=== PATIENT | female | born 1940 | race Caucasian/White ===

== ENCOUNTER 2019-03-29 22:10 | Inpatient (IN) ==
[2019-03-29] MEDS ORDERED: NITROGLYCERIN 2% OINT 1 INCH/GM PACK TOP ONE (22:23)
[2019-03-29] MEDS ORDERED: ONDANSETRON 4 MG/2 ML VIAL ONE (22:23)
[2019-03-29] MEDS ORDERED: NITROGLYCERIN 2% OINT 1 INCH/GM PACK TOP STA (22:25)
[2019-03-29] MEDS ORDERED: ALBUTEROL/IPRATROPIUM 3 ML NEB RESP TX STA (22:25)
[2019-03-29] MEDS ORDERED: ONDANSETRON 4 MG/2 ML VIAL IV STA (22:25)
[2019-03-29 22:38] LABS: Basophils # 0.1 10*3/uL (0.0-0.2); Basophils % 0.7 % (0.0-0.8); Eosinophils # 0.2 10*3/uL (0.0-0.87); Hematocrit 30.4 VOL% (35.7-47.0); Hemoglobin 9.6 GM/DL (12.0-16.0); Immature Granulocytes Absolute 0.24 #; Lymphocytes # 0.9 10*3/uL (1.4-4.0); Lymphocytes % 7.5 % (21.3-54.2); Mean Corpuscular HGB Conc 31.6 GM/DL (32-36); Mean Corpuscular Volume 105.6 FL (87-102); Mean Platelet Volume 9.3 FL (9.6-12.0); Monocytes % 4.5 % (1.7-12.7); Neutrophils % 83.3 % (38.7-73.9); Platelet Count 122 T/CUMM (130-400); Red Blood Count 2.88 MC/CUMM (3.8-5.5); Red Cell Distribution Width 20.1 % (9.3-17.3); White Blood Count 11.8 T/CUMM (4-12)
[2019-03-29 22:51] LABS: ABG Base Excess -2.7 MMOL/L (-2.5-2.5); ABG HCO3 22.2 MMOL/L (20-26); ABG PCO2 49.7 MM HG (35-48); ABG PH 7.294 (7.35-7.45); ABG TCO2 22.3 MMOL/L (23-27); Allen Test Positive; Pt O2 Delivery Device BIPAP
[2019-03-29 23:11] LABS: Albumin 3.9 G/DL (3.4-5.0); Bilirubin,Total 0.5 MG/DL (0.2-1.0); Calcium 7.6 MG/DL (8.5-10.1); Osmolality,Calculated 289.7 MOS/KG (273-304)
[2019-03-29 23:17] LABS: PT Patient Result 11.3 SECS (9.6-12.2)
[2019-03-30 00:11] LABS: Allen Test Positive; Pt O2 Delivery Device BIPAP
[2019-03-30 00:13] LABS: ABG Base Excess -0.7 MMOL/L (-2.5-2.5); ABG HCO3 24.9 MMOL/L (20-26); ABG Oxygen Saturation 98.9 % (95-100); ABG PCO2 45.6 MM HG (35-48); ABG PH 7.355 (7.35-7.45); ABG PO2 291.9 MM HG (80-95); ABG TCO2 26.3 MMOL/L (23-27)
[2019-03-30] MEDS ORDERED: BUDESONIDE/FORMOTEROL 80-4.5 INHALER 6.9 GM INH PRN (02:44)
[2019-03-30] MEDS ORDERED: hydrALAZINE 20 MG/1 ML VIAL IV PRN (02:44)
[2019-03-30] MEDS ORDERED: ALBUTEROL/IPRATROPIUM 3 ML NEB RESP TX PRN (02:44)
[2019-03-30] MEDS ORDERED: FUROSEMIDE 40 MG/4 ML VIAL IV ONE (02:44)
[2019-03-30 03:46] LABS: Basophils % 0.5 % (0.0-0.8); Eosinophils # 0.1 10*3/uL (0.0-0.87); Eosinophils % 1.8 % (0.00-10.9); Hematocrit 27.1 VOL% (35.7-47.0); Hemoglobin 8.3 GM/DL (12.0-16.0); Immature Granulocytes % 1.2 %; Immature Granulocytes Absolute 0.09 #; Lymphocytes # 0.5 10*3/uL (1.4-4.0); Lymphocytes % 6.7 % (21.3-54.2); Mean Corpuscular HGB Conc 30.6 GM/DL (32-36); Mean Platelet Volume 9.3 FL (9.6-12.0); Monocytes % 6.3 % (1.7-12.7); NRBC # 0.02 10*3/uL; Neutrophils % 83.5 % (38.7-73.9); Platelet Count 101 T/CUMM (130-400); Red Blood Count 2.58 MC/CUMM (3.8-5.5); Red Cell Distribution Width 20.2 % (9.3-17.3); White Blood Count 7.7 T/CUMM (4-12)
[2019-03-30 04:29] LABS: Troponin I 0.068 NG/ML (0.00-0.045)
[2019-03-30 04:34] LABS: Risk Ratio 2.87; Thyroid Stimulating Hormone 2.34 uIU/ml (0.358-3.74); VLDL CHOLESTEROL 27.2 MG/DL
[2019-03-30 04:35] LABS: Folate > 24.0 NG/ML (5.4-24.0); Vitamin B12 935 PG/ML (211-911)
[2019-03-30] MEDS ORDERED: HEPARIN 5,000 UNIT/1 ML VIAL SUBCUT SCH (06:00)
[2019-03-30] MEDS: LEVOTHYROXINE 50 MCG TABLET PO SCH (06:37)
[2019-03-30] MEDS ORDERED: carvediloL 6.25 MG TABLET PO SCH (08:00)
[2019-03-30] MEDS: THEOPHYLLINE ER 300 MG TABLET PO SCH ×2 (09:00→18:45)
[2019-03-30] MEDS: SEVELAMER CARBONATE 800 MG TABLET PO SCH ×3 (09:03→18:46)
[2019-03-30] MEDS: MONTELUKAST 10 MG TABLET PO SCH (09:04)
[2019-03-30] MEDS: hydrALAZINE 10 MG TABLET PO SCH ×2 (09:05→21:57)
[2019-03-30] MEDS: CLOPIDOGREL 75 MG TABLET PO SCH (09:05)
[2019-03-30] MEDS: ISOSORBIDE MONONITRATE 30 MG TABLET PO SCH (09:05)
[2019-03-30 09:44] LABS: Troponin I 0.068 NG/ML (0.00-0.045)
[2019-03-30] MEDS ORDERED: LIDOCAINE/PRILOCAINE CREAM 5 GM TUBE TOP ONE (10:56)
[2019-03-30] MEDS ORDERED: POTASSIUM CHLORIDE RIDER 10 MEQ in PREMIX 1 EACH IV PRN (11:11)
[2019-03-30] MEDS ORDERED: MAGNESIUM SULF RIDER 2 GM in PREMIX 1 EACH IV PRN (11:11)
[2019-03-30] MEDS: NEBIVOLOL 5 MG TABLET PO SCH ×2 (11:50→21:57)
[2019-03-30 12:54] LABS: Hepatitis B Core IgM Quant 0.08 Index; Hepatitis B Surface Ag Quant < 0.10 Index; Hepatitis B Surface Ag Result Negative (Negative); Hepatitis C Virus Ab Quant 0.04 Index; Hepatitis C Virus Ab Result Negative (Negative)
[2019-03-30 15:31] LABS: Troponin I 0.059 NG/ML (0.00-0.045)
[2019-03-30] MEDS ORDERED: PITAVASTATIN 2 MG TABLET PO SCH (21:00)
[2019-03-30] MEDS ORDERED: SIMVASTATIN 40 MG TABLET PO SCH (21:00)
[2019-03-30] MEDS: RANOLAZINE 500 MG TABLET PO SCH (21:56)
[2019-03-30] MEDS: PYRIDOXINE 100 MG TABLET PO SCH (21:56)
[2019-03-30] MEDS: MULTIVITAMIN (BEROCCA) TABLET PO SCH (21:57)
[2019-03-31 05:46] LABS: Basophils % 0.4 % (0.0-0.8); Eosinophils # 0.2 10*3/uL (0.0-0.87); Eosinophils % 2.4 % (0.00-10.9); Hematocrit 27.5 VOL% (35.7-47.0); Hemoglobin 8.6 GM/DL (12.0-16.0); Immature Granulocytes % 0.6 %; Immature Granulocytes Absolute 0.05 #; Lymphocytes # 0.6 10*3/uL (1.4-4.0); Lymphocytes % 8.2 % (21.3-54.2); Mean Corpuscular HGB Conc 31.3 GM/DL (32-36); Mean Corpuscular Volume 104.2 FL (87-102); Mean Platelet Volume 9.8 FL (9.6-12.0); Monocytes % 6.6 % (1.7-12.7); Neutrophils % 81.8 % (38.7-73.9); Platelet Count 103 T/CUMM (130-400); Red Blood Count 2.64 MC/CUMM (3.8-5.5); Red Cell Distribution Width 19.8 % (9.3-17.3); White Blood Count 7.8 T/CUMM (4-12)
[2019-03-31] MEDS ORDERED: DIAZEPAM 5 MG TABLET PO ONE (06:00)
[2019-03-31 06:07] LABS: Anisocytosis 1+; Macrocytosis 1+; Ovalocytes Slight
[2019-03-31 06:08] LABS: Platelet Estimate Decreased
[2019-03-31 06:20] LABS: Calcium 7.8 MG/DL (8.5-10.1); Osmolality,Calculated 273.2 MOS/KG (273-304)
[2019-03-31] MEDS: LEVOTHYROXINE 50 MCG TABLET PO SCH (06:36)
[2019-03-31] MEDS: SEVELAMER CARBONATE 800 MG TABLET PO SCH ×3 (09:18→17:59)
[2019-03-31] MEDS: THEOPHYLLINE ER 300 MG TABLET PO SCH ×2 (09:20→19:27)
[2019-03-31] MEDS: ISOSORBIDE MONONITRATE 30 MG TABLET PO SCH (09:21)
[2019-03-31] MEDS: RANOLAZINE 500 MG TABLET PO SCH ×2 (09:21→20:23)
[2019-03-31] MEDS: MONTELUKAST 10 MG TABLET PO SCH (09:21)
[2019-03-31] MEDS: hydrALAZINE 10 MG TABLET PO SCH ×2 (09:21→20:23)
[2019-03-31] MEDS: NEBIVOLOL 5 MG TABLET PO SCH ×2 (09:22→20:23)
[2019-03-31] MEDS: CLOPIDOGREL 75 MG TABLET PO SCH (09:22)
[2019-03-31] MEDS ORDERED: LIDOCAINE 1% 20 ML VIAL ONE (12:49)
[2019-03-31] MEDS ORDERED: NITROGLYCERIN DRIP 50 MG/250 ML BOTTLE IV ONE (12:49)
[2019-03-31] MEDS ORDERED: VERAPAMIL 5 MG/2 ML VIAL ONE (12:50)
[2019-03-31] MEDS ORDERED: DIAZEPAM 5 MG TABLET ONE (12:53)
[2019-03-31] MEDS ORDERED: HYDROmorphone 2 MG/1 ML VIAL ONE (13:13)
[2019-03-31] MEDS ORDERED: MIDAZOLAM 2 MG/2 ML VIAL ONE ×2 (13:13→15:36)
[2019-03-31] MEDS ORDERED: HEPARIN 5,000 UNIT/1 ML VIAL ONE ×2 (13:37→16:42)
[2019-03-31] MEDS ORDERED: diphenhydrAMINE 50 MG/1 ML VIAL ONE (15:37)
[2019-03-31] MEDS ORDERED: NITROPRUSSIDE 50 MG/2 ML VIAL ONE (16:53)
[2019-03-31] MEDS ORDERED: ONDANSETRON 4 MG/2 ML VIAL ONE ×2 (16:57→17:56)
[2019-03-31] MEDS ORDERED: NITROGLYCERIN SL 0.4 MG TABLET SL PRN (17:22)
[2019-03-31] MEDS ORDERED: ZALEPLON 5 MG CAPSULE PO PRN (17:22)
[2019-03-31] MEDS: ONDANSETRON 4 MG/2 ML VIAL IV PRN (18:00)
[2019-03-31] MEDS ORDERED: NITROGLYCERIN DRIP 50 MG/250 ML BOTTLE IV PRN (18:42)
[2019-03-31 19:33] LABS: Troponin I 0.041 NG/ML (0.00-0.045)
[2019-03-31] MEDS: MULTIVITAMIN (BEROCCA) TABLET PO SCH (20:23)
[2019-03-31] MEDS: PYRIDOXINE 100 MG TABLET PO SCH (20:26)
[2019-03-31] MEDS: HYDROmorphone 2 MG/1 ML VIAL IV PRN (20:39)
[2019-04-01] MEDS: HYDROmorphone 2 MG/1 ML VIAL IV PRN (02:18)
[2019-04-01 05:25] LABS: Basophils # 0.1 10*3/uL (0.0-0.2); Basophils % 0.7 % (0.0-0.8); Eosinophils # 0.1 10*3/uL (0.0-0.87); Eosinophils % 0.5 % (0.00-10.9); Hematocrit 23.1 VOL% (35.7-47.0); Hemoglobin 7.1 GM/DL (12.0-16.0); Immature Granulocytes % 1.1 %; Lymphocytes # 0.6 10*3/uL (1.4-4.0); Lymphocytes % 6.6 % (21.3-54.2); Mean Corpuscular HGB Conc 30.7 GM/DL (32-36); Mean Corpuscular Volume 106.5 FL (87-102); Neutrophils % 85.1 % (38.7-73.9); Platelet Count 108 T/CUMM (130-400); Red Blood Count 2.17 MC/CUMM (3.8-5.5); Red Cell Distribution Width 20.6 % (9.3-17.3); White Blood Count 9.1 T/CUMM (4-12)
[2019-04-01 05:58] LABS: CKMB % 21.1 %; Calcium 7.5 MG/DL (8.5-10.1); Osmolality,Calculated 268.1 MOS/KG (273-304)
[2019-04-01 06:00] LABS: Troponin I 3.15 NG/ML (0.00-0.045)
[2019-04-01 06:01] LABS: Calcium 7.9 MG/DL (8.5-10.1); Osmolality,Calculated 267.2 MOS/KG (273-304)
[2019-04-01] MEDS ORDERED: SODIUM CHLORIDE 0.9% 250 ML IV ONE ×4 (06:21→09:32)
[2019-04-01] MEDS: ONDANSETRON 4 MG/2 ML VIAL IV PRN ×2 (06:38→12:45)
[2019-04-01] MEDS: LEVOTHYROXINE 50 MCG TABLET PO SCH (06:41)
[2019-04-01] MEDS ORDERED: METOPROLOL SUCCINATE XL 50 MG TABLET PO SCH (06:44)
[2019-04-01] MEDS ORDERED: SODIUM CHLORIDE 0.9% 1,000 ML IV PRN ×2 (07:13→08:39)
[2019-04-01] MEDS ORDERED: PROMETHAZINE 25 MG/1 ML VIAL ONE (07:19)
[2019-04-01] MEDS ORDERED: PROMETHAZINE INJ 12.5 MG in SODIUM CHLORIDE 0.9% 50 ML IV ONE (07:23)
[2019-04-01 08:00] LABS: INR 1.1; PT Patient Result 11.9 SECS (9.6-12.2); Partial Thromboplastin Time 27.3 SECS (20.8-36.0)
[2019-04-01] MEDS: HEPARIN DRIP 25,000 UNITS/500 ML PREMIX IV SCH (08:13)
[2019-04-01] MEDS: PHENYLEPHRINE DRIP 40 MG/250 ML PREMIX IV PRN ×3 (09:36→16:01)
[2019-04-01] MEDS ORDERED: LIDOCAINE 1% 20 ML VIAL ONE (10:00)
[2019-04-01] MEDS ORDERED: MIDAZOLAM 2 MG/2 ML VIAL ONE (10:01)
[2019-04-01] MEDS ORDERED: HYDROmorphone 2 MG/1 ML VIAL ONE (10:01)
[2019-04-01 11:06] LABS: ABG Base Excess -9.4 MMOL/L (-2.5-2.5); ABG HCO3 17.1 MMOL/L (20-26); ABG PCO2 39.9 MM HG (35-48); ABG PH 7.251 (7.35-7.45); ABG TCO2 18.4 MMOL/L (23-27)
[2019-04-01] MEDS ORDERED: HEPARIN/NACL 0.9% 2 UNITS/ML 500 ML IV ONE (11:37)
[2019-04-01] MEDS: hydrALAZINE 10 MG TABLET PO SCH (12:28)
[2019-04-01] MEDS: THEOPHYLLINE ER 300 MG TABLET PO SCH ×2 (12:44→16:27)
[2019-04-01] MEDS: RANOLAZINE 500 MG TABLET PO SCH ×2 (12:44→20:54)
[2019-04-01] MEDS: SEVELAMER CARBONATE 800 MG TABLET PO SCH ×3 (12:44→16:27)
[2019-04-01] MEDS: ISOSORBIDE MONONITRATE 30 MG TABLET PO SCH (12:45)
[2019-04-01] MEDS: MONTELUKAST 10 MG TABLET PO SCH (12:45)
[2019-04-01 12:48] LABS: CKMB % 19.3 %
[2019-04-01] MEDS ORDERED: GLUCAGON 1 MG VIAL IM PRN (12:50)
[2019-04-01] MEDS ORDERED: SODIUM CHLORIDE 0.9% 1,000 ML IV SCH (13:00)
[2019-04-01] MEDS ORDERED: DEXTROSE 10% 250 ML BAG IV PRN (13:25)
[2019-04-01 15:40] LABS: INR 1.3; PT Patient Result 13.6 SECS (9.6-12.2)
[2019-04-01 15:49] LABS: Partial Thromboplastin Time 42.2 SECS (20.8-36.0)
[2019-04-01] MEDS ORDERED: SODIUM BICARBONATE 50 MEQ/50 ML VIAL IV ONE (16:05)
[2019-04-01] MEDS ORDERED: PHENYLEPHRINE DRIP 40 MG/250 ML PREMIX IV ONE (16:05)
[2019-04-01] MEDS ORDERED: CALCIUM CHLORIDE 1,000 MG/10 ML SYRINGE IV ONE (16:05)
[2019-04-01] MEDS ORDERED: NITROPRUSSIDE 50 MG/2 ML VIAL ONE (16:05)
[2019-04-01] MEDS ORDERED: POTASSIUM CHLORIDE RIDER 100 ML IV ONE (16:06)
[2019-04-01] MEDS ORDERED: ALBUMIN 5% 12.5 GM/250 ML VIAL IV ONE (16:14)
[2019-04-01 16:39] LABS: Basophils % 0.2 % (0.0-0.8); Eosinophils % 0.1 % (0.00-10.9); Hematocrit 33.3 VOL% (35.7-47.0); Hemoglobin 10.6 GM/DL (12.0-16.0); Immature Granulocytes % 1.5 %; Immature Granulocytes Absolute 0.24 #; Lymphocytes # 0.4 10*3/uL (1.4-4.0); Lymphocytes % 2.6 % (21.3-54.2); Mean Corpuscular HGB Conc 31.8 GM/DL (32-36); Mean Corpuscular Volume 99.4 FL (87-102); Monocytes % 4.8 % (1.7-12.7); NRBC # 0.04 10*3/uL; Neutrophils % 90.8 % (38.7-73.9); Platelet Count 99 T/CUMM (130-400); Red Blood Count 3.35 MC/CUMM (3.8-5.5); Red Cell Distribution Width 20.1 % (9.3-17.3)
[2019-04-01 16:40] LABS: White Blood Count 16.4 T/CUMM (4-12)
[2019-04-01 16:58] LABS: Albumin 3.9 G/DL (3.4-5.0); Bilirubin,Total 1.2 MG/DL (0.2-1.0); Calcium 7.8 MG/DL (8.5-10.1); Osmolality,Calculated 270.5 MOS/KG (273-304); Total Protein 6.9 G/DL (6.4-8.3)
[2019-04-01 17:20] LABS: Band Neutrophils 2 % (0-10); Lymphocytes 7 % (20-55); Segmented Neutrophils 89 % (50-85); Total Cells Counted 100
[2019-04-01 17:21] LABS: Anisocytosis 1+; Macrocytosis 1+; Poikilocytosis 1+; Polychromasia 1+
[2019-04-01 17:22] LABS: Platelet Estimate Decreased
[2019-04-01 18:47] LABS: CKMB % 17.9 %
[2019-04-01 18:49] LABS: Troponin I 26.9 NG/ML (0.00-0.045)
[2019-04-01] MEDS: PYRIDOXINE 100 MG TABLET PO SCH (20:47)
[2019-04-01] MEDS: MULTIVITAMIN (BEROCCA) TABLET PO SCH (20:54)
[2019-04-01 22:00] LABS: INR 1.3; PT Patient Result 14.2 SECS (9.6-12.2)
[2019-04-01 22:01] LABS: Partial Thromboplastin Time 43.9 SECS (20.8-36.0)
[2019-04-02] MEDS: ONDANSETRON 4 MG/2 ML VIAL IV PRN ×2 (00:15→05:44)
[2019-04-02] MEDS ORDERED: VANCOMYCIN 1,000 MG VIAL ONE (04:23)
[2019-04-02] MEDS ORDERED: PAPAVERINE 60 MG/2 ML VIAL ONE (04:23)
[2019-04-02] MEDS ORDERED: VANCOMYCIN 500 MG VIAL ONE (04:23)
[2019-04-02 05:34] LABS: Basophils % 0.3 % (0.0-0.8); Eosinophils % 0.2 % (0.00-10.9); Hematocrit 28.8 VOL% (35.7-47.0); Hemoglobin 9.3 GM/DL (12.0-16.0); Immature Granulocytes % 0.8 %; Immature Granulocytes Absolute 0.08 #; Lymphocytes # 0.6 10*3/uL (1.4-4.0); Lymphocytes % 5.4 % (21.3-54.2); Mean Corpuscular HGB Conc 32.3 GM/DL (32-36); Mean Corpuscular Volume 99.3 FL (87-102); Mean Platelet Volume 10.5 FL (9.6-12.0); Monocytes % 4.5 % (1.7-12.7); NRBC # 0.04 10*3/uL; Neutrophils % 88.8 % (38.7-73.9); Platelet Count 85 T/CUMM (130-400); Red Cell Distribution Width 20.9 % (9.3-17.3); White Blood Count 10.5 T/CUMM (4-12)
[2019-04-02] MEDS: LEVOTHYROXINE 50 MCG TABLET PO SCH (05:44)
[2019-04-02 05:49] LABS: INR 1.5; PT Patient Result 16.2 SECS (9.6-12.2)
[2019-04-02 05:50] LABS: Partial Thromboplastin Time 43.2 SECS (20.8-36.0)
[2019-04-02] MEDS ORDERED: DIAZEPAM 5 MG TABLET PO ONE (06:00)
[2019-04-02] MEDS ORDERED: CEFUROXIME INJ 1,500 MG in SYRINGE 1 EACH IV ONE (06:00)
[2019-04-02 06:02] LABS: Calcium 7.8 MG/DL (8.5-10.1); Osmolality,Calculated 267.8 MOS/KG (273-304)
[2019-04-02 06:07] LABS: CKMB % 12.3 %
[2019-04-02 06:14] LABS: Troponin I 35.8 NG/ML (0.00-0.045)
[2019-04-02] MEDS ORDERED: INSULIN REGULAR 100 UNIT/ML IV ONE ×2 (06:14→13:03)
[2019-04-02] MEDS ORDERED: SODIUM BICARBONATE 50 MEQ/50 ML VIAL IV ONE ×6 (06:14→14:20)
[2019-04-02] MEDS ORDERED: SODIUM CHLORIDE 0.9% 100 ML IV ONE (06:18)
[2019-04-02] MEDS ORDERED: CALCIUM GLUCONATE 1,000 MG/10 ML VIAL IV ONE (06:18)
[2019-04-02] MEDS ORDERED: MIDAZOLAM 10 MG/2 ML VIAL ONE (06:20)
[2019-04-02] MEDS ORDERED: SUFentanil 250 MCG/5 ML AMP ONE (06:20)
[2019-04-02 06:38] LABS: Band Neutrophils 1 % (0-10); Hypochromasia 1+; Lymphocytes 7 % (20-55); Ovalocytes Slight; Platelet Estimate Decreased; Segmented Neutrophils 89 % (50-85); Total Cells Counted 100
[2019-04-02] MEDS: SEVELAMER CARBONATE 800 MG TABLET PO SCH ×3 (07:04→15:34)
[2019-04-02] MEDS: HEPARIN DRIP 25,000 UNITS/500 ML PREMIX IV SCH (07:04)
[2019-04-02] MEDS: THEOPHYLLINE ER 300 MG TABLET PO SCH (07:05)
[2019-04-02 07:09] LABS: Troponin I 15.2 NG/ML (0.00-0.045)
[2019-04-02] MEDS ORDERED: CALCIUM GLUCONATE 1,000 MG in SODIUM CHLORIDE 0.9% 100 ML IV ONE (08:00)
[2019-04-02] MEDS: ISOSORBIDE MONONITRATE 30 MG TABLET PO SCH (08:00)
[2019-04-02] MEDS: RANOLAZINE 500 MG TABLET PO SCH (08:00)
[2019-04-02] MEDS: MONTELUKAST 10 MG TABLET PO SCH (08:01)
[2019-04-02 08:24] LABS: ABG Base Excess -3.6 MMOL/L (-2.5-2.5); ABG HCO3 21.4 MMOL/L (20-26); ABG PCO2 37.3 MM HG (35-48); ABG PH 7.366 (7.35-7.45); ABG TCO2 19.8 MMOL/L (23-27); Glucose Heart Surgery 123 MG/DL (74-106); Hematocrit Heart Surgery 26.2 PERCENT (37-47); Hemoglobin Heart Surgery 8.4 G/DL (12.0-16.0); PCO2 Patient Temp Arterial 37.3 MMHG; PH Patient Temp Arterial 7.366; Patient Temperature 37 CELCIUS; Potassium Heart/CVR 4.9 MMOL/L (3.5-5.1); Sodium Heart/CVR 132 MMOL/L (135-145)
[2019-04-02] MEDS ORDERED: FAMOTIDINE 20 MG/2 ML VIAL IV ONE (08:29)
[2019-04-02] MEDS ORDERED: PHENYLEPHRINE DRIP 20 MG/250 ML PREMIX IV ONE ×3 (08:30→14:15)
[2019-04-02 08:50] LABS: Apearance,Urine CLEAR (Clear); Bilirubin,Urine Negative (Negative); Blood, Urine Negative (Negative); Glucose,Urine (UA) 50 mg/dL (Negative); Ketones,Urine Negative (Negative); Mucus,Urine Occasional /LPF (Occasional); Nitrite,Urine Negative (Negative); Protein,Urine 100 MG/DL; RBC,Urine 1 /HPF (0-4); Urine Color Yellow (Yellow); Urine Specific Gravity 1.032 (1.001-1.035); Urine Urobilinogen < 2.0 EU/DL (0.2-1.0); WBC,Urine 1 /HPF (0-6)
[2019-04-02 09:49] LABS: Hematocrit Heart Surgery 16.1 PERCENT (37-47); Hemoglobin Heart Surgery 5.1 G/DL (12.0-16.0); PCO2 Patient Temp Venous 36.9 MM HG; PH Patient Temp Venous 7.377; PO2 Patient Temp Venous 36.7 MM HG; Potassium Heart/CVR 5.5 MMOL/L (3.5-5.1); VBG HCO3 21.7 MEQ/L (24-28); VBG Oxygen Saturation 74.7 %; VBG PCO2 40.6 MMHG (41-51); VBG PH 7.349; VBG PO2 42.1 MMHG (17-40)
[2019-04-02 10:19] LABS: Hematocrit Heart Surgery 25.3 PERCENT (37-47); Hemoglobin Heart Surgery 8.1 G/DL (12.0-16.0); PCO2 Patient Temp Venous 25.6 MM HG; PH Patient Temp Venous 7.456; Potassium Heart/CVR 4.3 MMOL/L (3.5-5.1); VBG Base Excess -4.9 MEQ/L (0-4); VBG HCO3 20.2 MEQ/L (24-28); VBG Oxygen Saturation 91.7 %; VBG PCO2 31.1 MMHG (41-51); VBG PH 7.398; VBG PO2 57.5 MMHG (17-40)
[2019-04-02 10:50] LABS: Hematocrit Heart Surgery 23.7 PERCENT (37-47); Hemoglobin Heart Surgery 7.6 G/DL (12.0-16.0); PCO2 Patient Temp Venous 29.3 MM HG; PH Patient Temp Venous 7.467; PO2 Patient Temp Venous 34.7 MM HG; Potassium Heart/CVR 5.1 MMOL/L (3.5-5.1); VBG HCO3 22.5 MEQ/L (24-28); VBG Oxygen Saturation 75.1 %; VBG PCO2 30.7 MMHG (41-51); VBG PH 7.452; VBG PO2 37.2 MMHG (17-40)
[2019-04-02] MEDS ORDERED: MAGNESIUM SULFATE 5 GM/10 ML VIAL IV ONE (11:14)
[2019-04-02] MEDS ORDERED: HEPARIN 10,000 UNIT/10 ML VIAL ONE (11:14)
[2019-04-02] MEDS ORDERED: POTASSIUM CHLORIDE 20 MEQ/10 ML VIAL ONE (11:14)
[2019-04-02] MEDS ORDERED: ALBUMIN 25% 25 GM/100 ML VIAL IV ONE (11:14)
[2019-04-02] MEDS ORDERED: MANNITOL 100 GM/500 ML BAG IV ONE (11:14)
[2019-04-02] MEDS ORDERED: FUROSEMIDE 20 MG/2 ML VIAL ONE (11:14)
[2019-04-02] MEDS ORDERED: PROTAMINE SULFATE 50 MG/5 ML VIAL IV ONE (11:15)
[2019-04-02] MEDS ORDERED: LIDOCAINE 2% 5 ML VIAL ONE ×2 (11:15→14:15)
[2019-04-02] MEDS ORDERED: methylPREDNISolone SOD SUC 1,000 MG/8 ML VIAL ONE (11:15)
[2019-04-02 11:44] LABS: ABG Base Excess -5.9 MMOL/L (-2.5-2.5); ABG HCO3 19.6 MMOL/L (20-26); ABG PCO2 39.8 MM HG (35-48); ABG PH 7.308 (7.35-7.45); ABG TCO2 18.7 MMOL/L (23-27); Glucose Heart Surgery 159 MG/DL (74-106); Hematocrit Heart Surgery 26.9 PERCENT (37-47); Hemoglobin Heart Surgery 8.7 G/DL (12.0-16.0); Ionized Calcium Arterial 1.42 MMOL/L (1.21-1.46); PCO2 Patient Temp Arterial 39.8 MMHG; PH Patient Temp Arterial 7.308; Patient Temperature 37 CELCIUS; Potassium Heart/CVR 5.2 MMOL/L (3.5-5.1); Sodium Heart/CVR 134 MMOL/L (135-145)
[2019-04-02 12:13] LABS: ABG Base Excess -9.8 MMOL/L (-2.5-2.5); ABG HCO3 16.6 MMOL/L (20-26); ABG Oxygen Saturation 99.9 % (95-100); ABG PCO2 30.9 MM HG (35-48); ABG PH 7.308 (7.35-7.45); ABG TCO2 14.4 MMOL/L (23-27); Glucose Heart Surgery 197 MG/DL (74-106); Hematocrit Heart Surgery 27.8 PERCENT (37-47); Ionized Calcium Arterial 1.26 MMOL/L (1.21-1.46); PCO2 Patient Temp Arterial 30.9 MMHG; PH Patient Temp Arterial 7.308; Patient Temperature 37 CELCIUS; Potassium Heart/CVR 5.3 MMOL/L (3.5-5.1); Sodium Heart/CVR 135 MMOL/L (135-145)
[2019-04-02] MEDS ORDERED: EPINEPHrine 1 MG/ML VIAL ONE ×2 (12:53→14:15)
[2019-04-02] MEDS ORDERED: DOBUTamine 500 MG/250 ML PREMIX IV ONE ×2 (12:54→14:15)
[2019-04-02] MEDS ORDERED: MAGNESIUM SULF RIDER 2 GM in PREMIX 1 EACH IV PRN (13:03)
[2019-04-02] MEDS ORDERED: MORPHINE 10 MG/1 ML VIAL IV PRN (13:03)
[2019-04-02] MEDS ORDERED: MORPHINE 4 MG/1 ML VIAL IV PRN (13:03)
[2019-04-02] MEDS ORDERED: CALCIUM CHLORIDE 1,000 MG/10 ML SYRINGE IV PRN (13:03)
[2019-04-02] MEDS ORDERED: MIDAZOLAM 2 MG/2 ML VIAL IV PRN (13:03)
[2019-04-02] MEDS ORDERED: POTASSIUM CHLORIDE RIDER 10 MEQ in PREMIX 1 EACH IV PRN (13:03)
[2019-04-02] MEDS ORDERED: INSULIN REGULAR 100 UNIT/ML IV PRN (13:03)
[2019-04-02] MEDS ORDERED: DEXTROSE 50% 25 GM/50 ML VIAL IV PRN ×2 (13:03)
[2019-04-02] MEDS ORDERED: PHENYLEPHRINE DRIP 40 MG/250 ML PREMIX IV PRN (13:03)
[2019-04-02] MEDS ORDERED: ALBUMIN 5% 12.5 GM in PREMIX 1 EACH IV PRN (13:03)
[2019-04-02] MEDS ORDERED: ONDANSETRON 4 MG/2 ML VIAL IV PRN (13:03)
[2019-04-02] MEDS ORDERED: MAGNESIUM SULF RIDER 4 GM in PREMIX 1 EACH IV PRN (13:03)
[2019-04-02] MEDS ORDERED: NITROPRUSSIDE 100 MG in DEXTROSE 5% 250 ML IV PRN (13:03)
[2019-04-02] MEDS ORDERED: LACTATED RINGERS 250 ML IV PRN (13:03)
[2019-04-02] MEDS ORDERED: POTASSIUM CHLORIDE RIDER 20 MEQ in PREMIX 1 EACH IV PRN (13:03)
[2019-04-02] MEDS ORDERED: MIDAZOLAM 10 MG/2 ML VIAL IV PRN (13:03)
[2019-04-02] MEDS ORDERED: VECURONIUM 10 MG VIAL IV PRN ×2 (13:03)
[2019-04-02] MEDS: CALCIUM CHLORIDE 1,000 MG/10 ML SYRINGE IV PRN ×2 (13:19→14:06)
[2019-04-02] MEDS: EPINEPHrine 1 MG/10 ML SYRINGE IV PRN ×2 (13:23→14:20)
[2019-04-02] MEDS: SODIUM BICARBONATE 50 MEQ/50 ML VIAL IV PRN ×6 (13:25→13:55)
[2019-04-02 13:26] LABS: ABG Base Excess -16.7 MMOL/L (-2.5-2.5); ABG HCO3 10.8 MMOL/L (20-26); ABG PCO2 64.8 MM HG (35-48); ABG TCO2 15.2 MMOL/L (23-27); Glucose Heart Surgery 228 MG/DL (74-106); Hematocrit Heart Surgery 22.1 PERCENT (37-47); Hemoglobin Heart Surgery 7.1 G/DL (12.0-16.0); Potassium Heart/CVR 5.3 MMOL/L (3.5-5.1)
[2019-04-02 13:30] LABS: ABG PH 6.963 (7.35-7.45); ABG PO2 22.5 MM HG (80-95)
[2019-04-02] MEDS ORDERED: INSULIN REGULAR DRIP 100 ML IV SCH (13:30)
[2019-04-02] MEDS ORDERED: SODIUM CHLORIDE 0.45% 1,000 ML IV SCH ×2 (13:30)
[2019-04-02 13:32] LABS: Basophils % 0.1 % (0.0-0.8); Hematocrit 23.6 VOL% (35.7-47.0); Hemoglobin 6.9 GM/DL (12.0-16.0); Immature Granulocytes % 0.9 %; Immature Granulocytes Absolute 0.07 #; Lymphocytes # 1.4 10*3/uL (1.4-4.0); Lymphocytes % 18.5 % (21.3-54.2); Mean Corpuscular HGB Conc 29.2 GM/DL (32-36); Mean Corpuscular Volume 103.5 FL (87-102); Mean Platelet Volume 10.9 FL (9.6-12.0); NRBC # 0.52 10*3/uL; Neutrophils % 75.5 % (38.7-73.9); Red Blood Count 2.28 MC/CUMM (3.8-5.5); Red Cell Distribution Width 19.5 % (9.3-17.3); White Blood Count 7.4 T/CUMM (4-12)
[2019-04-02 13:33] LABS: Platelet Count 62 T/CUMM (130-400)
[2019-04-02 13:42] LABS: INR 1.8; PT Patient Result 19.4 SECS (9.6-12.2)
[2019-04-02 13:46] LABS: Partial Thromboplastin Time 62.3 SECS (20.8-36.0)
[2019-04-02] MEDS ORDERED: EPINEPHrine 1 MG/10 ML SYRINGE ONE ×2 (13:54→14:15)
[2019-04-02] MEDS ORDERED: DOBUTamine 500 MG/250 ML PREMIX IV SCH (14:00)
[2019-04-02 14:05] LABS: Albumin 2.2 G/DL (3.4-5.0); Bilirubin,Total 0.7 MG/DL (0.2-1.0); Calcium 11.5 MG/DL (8.5-10.1); Osmolality,Calculated 293.3 MOS/KG (273-304)
[2019-04-02 14:08] LABS: CKMB % 10.3 %
[2019-04-02 14:10] LABS: Troponin I 56.9 NG/ML (0.00-0.045)
[2019-04-02] MEDS ORDERED: HEPARIN/NACL 0.9% 2 UNITS/ML 500 ML IV ONE (14:15)
[2019-04-02] MEDS ORDERED: LIDOCAINE 1% 5 ML VIAL ONE (14:15)
[2019-04-02] MEDS ORDERED: CALCIUM CHLORIDE 1,000 MG/10 ML VIAL IV ONE (14:15)
[2019-04-02] MEDS ORDERED: SEVOFLURANE 1 UNIT/15 MINUTE INH ONE (14:15)
[2019-04-02] MEDS ORDERED: SODIUM CHLORIDE 0.9% 2,000 ML IV ONE (14:16)
[2019-04-02] MEDS ORDERED: diphenhydrAMINE 50 MG/1 ML VIAL ONE (14:16)
[2019-04-02] MEDS ORDERED: PHENYLEPHRINE 1 MG/10 ML SYRINGE IV ONE (14:16)
[2019-04-02] MEDS ORDERED: VECURONIUM 10 MG VIAL IV ONE (14:16)
[2019-04-02] MEDS ORDERED: SODIUM CHLORIDE 0.9% 250 ML IV ONE (14:16)
[2019-04-02] MEDS ORDERED: AMINOCAPROIC ACID 5,000 MG/20 ML VIAL ONE (14:16)
[2019-04-02] MEDS ORDERED: ETOMIDATE 40 MG/20 ML VIAL IV ONE (14:16)
[2019-04-02] MEDS ORDERED: NITROGLYCERIN DRIP 50 MG/250 ML BOTTLE IV ONE (14:16)
[2019-04-02] MEDS ORDERED: MINERAL OIL/PETROLATUM OPH OINT 3.5 GM TUBE ONE (14:16)
[2019-04-02] MEDS ORDERED: ePHEDrine 50 MG/ML AMP ONE (14:16)
[2019-04-02] MEDS ORDERED: SODIUM CHLORIDE 0.45% 500 ML IV ONE (14:18)
[2019-04-02 14:27] LABS: Platelet Estimate Decreased
[2019-04-02] MEDS ORDERED: SODIUM CHLORIDE 23.4% CONC INJ 38.5 MEQ, SODIUM BICARB INJ 100 MEQ in STERILE WATER INJ... IV SCH ×2 (14:30)
[2019-04-02 16:43] VITALS: BP 24/13
[2019-04-02] MEDS ORDERED: CEFUROXIME INJ 1,500 MG in SYRINGE 1 EACH IV SCH (21:05)
== END 2019-04-02 14:38 | disposition expired | DRG 231 ==
LOC: EDBD → EDUNIT# → N.ED 22:10 → N.EDINP 03-30 00:22 → N.ICU 03-30 01:03 → N.CVR 04-02 10:17
PROVIDERS: ADMIT Internal Medicine; ATTEND Internal Medicine